=== PATIENT | female | born 1960 | race Caucasian/White ===

== ENCOUNTER → 2016-08-08 | Outpatient (CLI) | payer OTHER ==
[2016-08-08 09:27] LABS: BASOPHILS % (AUTO) 1 % (0-2); EOSINOPHILS # (AUTO) 0.1 10^3uL; EOSINOPHILS % (AUTO) 3 % (0-4); LYMPHOCYTES # (AUTO) 1.6 X10^3; MEAN CORPUSCULAR HGB CONC 32.9 g/dL (31.0-37.0); MEAN CORPUSCULAR VOLUME 81 FL (80-100); MEAN PLATELET VOLUME 10.4 FL (6.0-9.5); MONOCYTES # (AUTO) 0.4 X10^3; MONOCYTES % (AUTO) 9 % (3-11); NEUTROPHILS # (AUTO) 2.1 X10^3; NEUTROPHILS % (AUTO) 50 % (51-67); PLATELET COUNT 313 10^3uL (150-450); WHITE BLOOD COUNT 4.24 10^3uL (4.0-11.0)
[2016-08-08 09:36] LABS: MEAN CORPUSCULAR HEMOGLOBIN 26.7 PG (26.0-34.0)
[2016-08-08 09:44] LABS: ALBUMIN 4.5 g/dL (3.4-5.0); ANION GAP 16.1 MEQ/L (3-15); CALCULATED IONIZED CALCIUM 3.8 mg/dL (3.8-4.6); TOTAL PROTEIN 7.6 g/dL (6.4-8.5)
== END ==
LOC: RAD 09:07
PROVIDERS: ATTEND Internal Medicine Hematology & Oncology
DX: C50.511 Malignant neoplasm of lower-outer quadrant of right female breast (principal); C50.811 Malignant neoplasm of overlapping sites of right female breast; N60.02 Solitary cyst of left breast
CPT/HCPCS: 36415; 76642; 80053; 83615; 85025; G0204